=== PATIENT | female | born 1995 | race Two or more races ===

== ENCOUNTER 2016-11-16 21:13 | Emergency (ER) | payer SELFPAY ==
[~2016-11-16] VITALS: Ht 152.4 cm; Wt 52.6 kg
[2016-11-16 21:21] VITALS: BP 120/74
--- NOTE | 2016-11-16 21:45 | PHYS DOC ---
Past Medical History Past Medical History: No Pertinent History Past Surgical History: No Surgical History Alcohol Use: None Drug Use: None Adult General Chief Complaint Chief Complaint: LACERATION/AVULSION [facility] HPI Patient is a 21 year old female in the emergency department with a laceration to the back of her head. It is approximately 1 cm on the right. Patient was hit in the head was playing soccer she denies any loss of consciousness. She denies any pain or discomfort. Immunizations are up-to-date. Bleeding is controlled. Review of Systems Review of Systems Constitutional: Denies fever or chills [] Eyes: Denies change in visual acuity, redness, or eye pain [] HENT: Denies nasal congestion or sore throat [] Respiratory: Denies cough or shortness of breath [] Cardiovascular: No additional information not addressed in HPI [] GI: Denies abdominal pain, nausea, vomiting, bloody stools or diarrhea [] : Denies dysuria or hematuria [] Musculoskeletal: Denies back pain or joint pain [] Integument: Denies rash or skin lesions. Laceration to the back of the head. Neurologic: Denies headache, focal weakness or sensory changes [] Allergies Allergies Allergies Coded Allergies Type Severity Reaction Last Updated Verified No Known Drug Allergies 11/16/16 No Physical Exam Physical Exam Constitutional: Well developed, well nourished, no acute distress, non-toxic appearance. [] HENT: Normocephalic, atraumatic, bilateral external ears normal, oropharynx moist, no oral exudates, nose normal. [] Eyes: PERRLA, EOMI, conjunctiva normal, no discharge. [] Neck: Normal range of motion, no tenderness, supple, no stridor. [] Cardiovascular: Patient pink warm and dry. Lungs & Thorax: No respiratory distress noted. Skin: Warm, dry, no erythema, no rash. Laceration noted to the right side of the back had an approximately 1.5 cm in length. Bleeding is currently controlled. Back: No cervical spine thoracic spine and lumbar spine tenderness no step-offs deformities or crepitus noted. Extremities: No tenderness, no cyanosis, no clubbing, ROM intact, no edema. [] Neurologic: Alert and oriented X 3, normal motor function, normal sensory function, no focal deficits noted. [] Psychologic: Affect normal, judgement normal, mood normal. [] Current Patient Data Vital Signs Vital Signs Date Time Temp Pulse Resp B/P Pulse Ox O2 Delivery O2 Flow Rate FiO2 11/16/16 21:21 98.3 91 18 98 Room Air 98.3 EKG EKG [] Radiology/Procedures Radiology/Procedures [] Course & Med Decision Making Course & Med Decision Making Pertinent Labs and Imaging studies reviewed. (See chart for details) Patient will be discharged home in stable condition. She'll be instructed to keep the area clean and dry. She may wash the hair daily. Apply antibiotic ointment to the site twice a day. Also provided patient with signs and symptoms of infection. Recommended yunier out in 7-10 days. Patient will be discharged home in stable condition. Signs and symptoms to return back to emergency department as been provided. Patient agrees with discharge instructions treatment regimens and follow-up recommendations. [] Dragon Disclaimer Dragon Disclaimer This electronic medical record was generated, in whole or in part, using a voice recognition dictation system. Departure Departure Impression: Primary Impression: Laceration of head Disposition: HOME, SELF-CARE Condition: STABLE Patient Instructions: Laceration Care, Adult, [id number], Stitches, Draper or Skin Adhesive Strips, [id number] Additional Instructions: Activity as tolerated. Tylenol or ibuprofen for pain and discomfort. Keep the area clean and dry. Clean the site with soap and water and apply antibiotic ointment twice a day. Watch for signs and symptoms of infection: Redness, warmth, tenderness or any yellow/greenish drainage that may develop. Follow-up through primary care physician in the next 7-10 days to have the yunier removed. Return to emergency department as needed for signs and symptoms of become worse. Laceration/Wound Repair Laceration/Wound Repair : Wound Location: head Wound's Depth, Shape: superficial Wound Length (cm): 1 Wound Explored: clean Betadine Prep?: Yes Progress Site was cleaned with Betadine. Yunier was placed in the area. 2 yunier placed without difficulty QUINN MCALLISTER NP Nov 16, 2016 21:46
== END 2016-11-16 22:02 | disposition home or self-care (01) ==
LOC: ER 21:13
DX: S01.01XA Laceration without foreign body of scalp, initial encounter (principal); W50.0XXA Accidental hit or strike by another person, initial encounter; Y93.66 Activity, soccer; Y92.89 Other specified places as the place of occurrence of the external cause; Y99.8 Other external cause status
CPT/HCPCS: 12001; 99283-25

== ENCOUNTER 2021-01-17 21:37 | Emergency (ER) | payer MEDICAID ==
[~2021-01-17] VITALS: Ht 152.4 cm; Wt 59.1 kg
[2021-01-17] MEDS ORDERED: oxyCODONE/APAP 5/325 1 TAB TABLET PO ONE (22:15)
--- NOTE | 2021-01-17 22:36 | RAD ---
Three-view right knee dated 01/17/2021. No comparison available. CLINICAL INDICATION: Pain. FINDINGS: 3 views the right knee show normal bony alignment. No displaced fracture. No apparent joint effusion or loose body. No acute osseous or articular abnormality. IMPRESSION: No acute findings. Electronically signed by: Chu Zendejas MD (01/17/2021 10:33 PM) MASOOD
--- NOTE | 2021-01-17 22:52 | ED.ADGEN ---
Past Medical History Past Medical History: No Pertinent History Past Surgical History: No Surgical History Smoking Status: Never Smoker Alcohol Use: None Drug Use: None General Adult EDM: Chief Complaint: KNEE INJURY HPI: HPI: Patient is a 25-year-old female who presents to the emergency room complaining of right knee pain. Patient states that she was playing soccer and was running to descend the ball when she overextended her knee and felt a pop laterally. She states her patella was in the right place. She has had pain since this time. She does not try to take anything for the pain. Pain is throbbing in nature and constant. Is worse with movement. She did have some pain from a p revious injury that resolved about a week ago. She denies any numbness or weakness. She denies any distal or proximal pain. Review of Systems: Review of Systems: Complete ROS is negative unless otherwise documented in HPI Current Medications: Current Medications Medications (Trade) Dose Ordered Sig/Ally Start Time Stop Time Status Last Admin Dose Admin Oxycodone/ Acetaminophen (Percocet 5/325) 1 tab 1X ONCE 01/17/21 22:15 01/17/21 22:16 DC 01/17/21 22:18 1 TAB Allergies: Allergies: Allergies Coded Allergies Type Severity Reaction Last Updated Verified No Known Drug Allergies 11/16/16 No Physical Exam: PE: General: Awake, alert, NAD. Well Nourished, well hydrated. Cooperative HEENT: Atraumatic, EOMI, PERRL, airway patent, moist oral mucosa Neck: Supple, trachea midline Respiratory: CTA bilaterally, normal effort, no wheezing/crackles CV: RRR, no murmur, cap refill <2 GI: Soft, nondistended, nontender, no masses M right knee: Tenderness to the lateral aspect of the knee with swelling, patella in place, normal range of motion, 2+ DP pulse, intact distal sensation Skin: Warm, dry, intact Neuro: A&O x3, speech NL, sensory and motor grossly intact, no focal deficits Psych: Normal affect, normal mood, not suicidal or homicidal Current Patient Data: Vital Signs: Vital Signs Date Time Temp Pulse Resp B/P (MAP) Pulse Ox O2 Delivery O2 Flow Rate FiO2 01/17/21 22:18 20 98 Room Air 01/17/21 21:45 98.6 96 141/75 (97) 98.6 EKG: EKG: [] Heart Score: C/O Chest Pain: N/A Risk Factors: Risk Factors: DM, Current or recent (<one month) smoker, HTN, HLP, family history of CAD, obesity. Risk Scores: Score 0 - 3: 2.5% MACE over next 6 weeks - Discharge Home Score 4 - 6: 20.3% MACE over next 6 weeks - Admit for Clinical Observation Score 7 - 10: 72.7% MACE over next 6 weeks - Early Invasive Strategies Radiology/Procedures: Radiology/Procedures: [] Course & Med Decision Making: Course & Med Decision Making Pertinent Labs and Imaging studies reviewed. (See chart for details) Patient is 25-year-old female presents to the emergency room complaining of right knee pain after an injury. X-rays were done which do not show any acute fracture. She does not have a high riding patella or patella dislocation. It is likely that her injury is either soft tissue, ligamentous, or meniscus in origin. We will place her in a knee brace and have her follow-up with orthopedic surgery. Patient's test results and vitals while in the ED were fully reviewed and discussed with the patient. Patient is stable and at this time does not need admission to the hospital. We have discussed strict return precautions and the importance of following up with their Primary Care Physician. Patient stated understanding and was given an opportunity to ask any questions. Patient is in agreement with plan. Oscar Disclaimer: Oscar Disclaimer: This electronic medical record was generated, in whole or in part, using a voice recognition dictation system. Departure Departure Impression: Primary Impression: Knee sprain Disposition: 01 DC HOME SELF CARE/HOMELESS Condition: STABLE Referrals: NO PCP (PCP) TIM MENSAH MD Patient Instructions: Knee Sprain JONNIE ZAPATA MD Jan 17, 2021 22:52
[2021-01-17 23:17] VITALS: BP 113/72
== END 2021-01-17 23:47 | disposition home or self-care (01) ==
LOC: ER 21:37
DX: S83.91XA Sprain of unspecified site of right knee, initial encounter (principal); X50.9XXA Other and unspecified overexertion or strenuous movements or postures, initial encounter; Y93.66 Activity, soccer; Y92.89 Other specified places as the place of occurrence of the external cause; Y99.8 Other external cause status
CPT/HCPCS: 29505; 73562; 99283